=== PATIENT | female | born 1985 | race Caucasian/White ===

== ENCOUNTER 2025-01-06 18:56 | Emergency (ER) | payer BC, SELFPAY ==
[2025-01-06 19:02] VITALS: BP 124/67
[2025-01-06] MEDS: ADACEL 0.5 ML IM (19:33)
[2025-01-06] MEDS: LET TOPICAL ANESTHETIC GEL 3 ML TOPICAL (19:33)
--- NOTE | 2025-01-06 19:37 | ED.SKININJ ---
HPI-Injury
General
Chief Complaint: Skin Surface Trauma
Source: patient
Exam Limitations: none
Time Seen by Provider: 01/06/25 19:21
Nursing documentation reviewed up to this point in time: agreed with
History of Present Illness-Injury
Initial Injury comments:
39-year-old female cut her right index finger on the metal part of the baptist door within the past few hours. She is unsure of her last tetanus immunization.
Past History
Past History
ED Past Medical History: None
Social History
Tobacco: Non-smoker
Alcohol: None
Personal:
Living: with family
Employment: Employed
Review of Systems
Review of Systems
Allergies reviewed?: Yes
All Other Systems: ROS reviewed and negative except as documented in HPI and ROS
Phy Exam
Physical Exam
Physical Exam:
PHYSICAL EXAMINATION:
General: no apparent distress, not acutely ill
Neuro: alert and oriented.
Psychiatric: well kept. interactive and cooperative
Musculoskeletal: Moves with ease
Skin: Warm, pink.
Course
Orders/Labs/Results
Orders:
Orders
01/06/25 19:30
Lidocaine/Epinephrine/Tetracai [Let Topical Anesthetic Gel] 3 ml .ROUTE .STK-MED ONE
Lidocaine/Epinephrine/Tetracai [Let Topical Anesthetic Gel] 3 ml TOPICAL NOW STA
01/06/25 19:31
Tetanus/Diphth/Acelpertussis [Adacel] 0.5 ml IM .ONCE ONE
Vital Signs
Initial and Last Documented VS:
Initial Vital Signs
Temp Pulse Resp Pulse Ox
98.0 F 88 18 99
01/06/25 18:59 01/06/25 18:59 01/06/25 18:59 01/06/25 18:59
Last Documented Vital Signs
Temp Pulse Resp BP Pulse Ox
98.0 F 88 18 124/67 99
01/06/25 18:59 01/06/25 18:59 01/06/25 18:59 01/06/25 19:02 01/06/25 19:40
Procedures
Laceration Closure
right index finger palmar aspect just below DIP joint:
Status of Wound: clean
Size of Wound in cm: 1
Description of Wound Edges: sharp
Preparation: cleaned with soap & water
Anesthesia: Topical-LET
Revision/Debridement: routine- no revision
Wound exploration: no tendon involvement
Type of Closure: Dermabond-skin glue (reinforced with skin adhesive and steristrips then band aid. Aluminum helmet splint applied for protection.)
MDM/Problems Addressed
MDM/Problems Addressed:
39-year-old female cut her right index finger on the metal part of the baptist door within the past few hours. She is unsure of her last tetanus immunization.
Laceration wound edges well-approximated with wound glue, reinforced with skin adhesive and Steri-Strip. Band-Aid applied and aluminum helmet splint applied for protection.
Tdap updated.
*Pulse Oximetry
SaO2: 99
Patient hypoxic: not evaluated
*Critical Care Note
Total Time (30-74mins, 75-104mins- exclusive of procedures): Not Applicable
ED Attending Note
-
Portions of this chart may have been created with voice recognition software.� Occasional wrong word or��sound alike� substitutions may have occurred due to the inherent limitations of voice recognition software.
Discharge Plan
Departure
Patient Disposition: Home (Routine Discharge)
Date of Disposition: 01/06/25
Time of Disposition: 19:48
Patient with high blood pressure during this ER visit?: No
Condition: Good
Discharge Problem:
Laceration of right index finger
Instructions: Laceration Repair With Glue (DC)
Prescriptions:
No Action
No Current Medications
0
Referrals:
Arnoldo Davenport MD [Active, Internal Medicine] - As needed
Activity Restrictions/Additional Instructions:
As we discuss it takes about 2 weeks for this area to heal.
Keep the Band-Aid on for showering. Then gently remove the Band-Aid, allow the strips to air dry or blow them dry and replace clean Band-Aid. Do this daily for 2 weeks.
If the strips fall off before 2 weeks, that is okay simply keep it covered with a Band-Aid.
Use the aluminum finger splint as needed for protection.
Interventions
Interventions:
*Risk Screen - Suicide Last Done: 01/06/25 19:01
*General Assessment Last Done: 01/06/25 19:01
*Neglect/Abuse Screening Last Done: 01/06/25 19:01
*ED- Fall Risk Assessment Last Done: 01/06/25 19:40
*ED COVID-19 Vaccine History Last Done: 01/06/25 19:01
*ED Influenza Vaccine History Last Done: 01/06/25 19:01
ED-Skin Assessment Last Done: 01/06/25 19:40
Discharge Date and Time
Print Language: EQUATORIAL GUINEAN
== END 2025-01-06 20:23 | disposition home or self-care (01) ==
LOC: EMR 18:56
PROVIDERS: EMERGENCY PHYSICIAN Emergency Medicine; FAMILY PHYSICIAN Internal Medicine
DX: S61.210A Laceration without foreign body of right index finger without damage to nail, initial encounter (principal); W26.8XXA Contact with other sharp object(s), not elsewhere classified, initial encounter; Z23 Encounter for immunization
CPT/HCPCS: 90471; 12001; 99282; 90715